=== PATIENT | male | born 1960 | race Caucasian/White ===

== ENCOUNTER 2018-08-21 09:46 | Observation (INO) | payer SELFPAY ==
[~2018-08-21] VITALS: Ht 172.7 cm; Wt 120.7 kg
[~2018-08-21 09:46] MED LIST: LORA-1455 PO
--- NOTE | 2018-08-21 09:49 | ER Report ---
History and Physical Time Seen By MD: 09:49 HPI/ROS CHIEF COMPLAINT: Left flank, left lower abdominal pain. HISTORY OF PRESENT ILLNESS: Patient is a 58-year-old male who was involved in [place]. States that yesterday evening. Tonight he developed worsening left back left flank and left groin pain. Patient does have a prior history of kidney stones but states the pain feels different it is much more severe. Patient is unable to find a position of comfort. He does however preferred to lay on his right side. Pain is associated with some nausea. He denies any fevers or chills. Denies any history of hypertension. Denies any other real significant past medical history. REVIEW OF SYSTEMS: Constitutional: No fever, no chills. Eyes: No discharge. ENT: No sore throat. Cardiovascular: No chest pain, no palpitations. Respiratory: No cough, no shortness of breath. Gastrointestinal: Severe left lower quadrant and left flank abdominal pain. Genitourinary: No hematuria. Left scrotal pain Musculoskeletal: Left sided back pain Skin: No rashes. Neurological: No headache. Allergies: Coded Allergies: No Known Drug Allergies (Unverified , 07/30/16) Home Meds Reported Medications Citrulline (L-CITRULLINE) 25 Gm Powder, 25 GM MC 08/21/18 Saw [place] (SAW PALMETTO) 500 Mg Capsule, 500 MG PO, CAPSULE 08/21/18 Discontinued Scripts Lorazepam (ATIVAN) 0.5 Mg Tablet, 0.5 MG PO Q4-6H PRN for ANXIETY, #10 TAB Prov:LINDA BAER UTILIZATION SUPERVISOR 07/30/16 Past Medical/Surgical History Patient denies any pertinent medical or surgical history. Hx Substance Use Disorder: No Constitutional Vital Sign - Last 24 Hours 08/21/18 08/21/18 08/21/18 08/21/18 09:57 09:58 10:01 10:16 Temp 98.2 Pulse 73 71 74 Resp 22 10 B/P (MAP) 162/81 162/81 (108) Pulse Ox 92 92 95 O2 Delivery Room Air 08/21/18 08/21/18 08/21/18 08/21/18 10:18 10:26 10:30 10:31 Pulse 71 Resp 21 B/P (MAP) 129/75 (93) 144/100 (115) Pulse Ox 91 O2 Flow Rate 2.0 08/21/18 08/21/18 10:46 11:02 Pulse ??? B/P (MAP) 151/79 (103) Physical Exam General/Constitutional: Patient is awake, alert, nontoxic and in no acute respiratory distress. Patient moving on the gurney in extreme discomfort. Head: Normocephalic and atraumatic. Eyes: Conjunctival clear, Pupils are equal and reactive to light. Extraocular muscles are intact and symmetrical. Sclera are clear and anicteric. Ears:External canals are clear. Tympanic membranes are clear with normal marlene dmarks and light reflex. Nares: No rhinorrhea or bleeding. Turbinates are pink and moist. Oropharyngeal: Mucous membranes are moist. Neck: Supple, no adenopathy. Cardiovascular: Heart is regular rate and rhythm without audible murmurs, rubs or gallops. Pulmonary: Lungs are clear to auscultation bilaterally. There are no wheezes, rales, or rhonchi. Chest rise is symmetrical Abdomen: Soft, nontender, no guarding or peritoneal signs. Extremities: No gross deformities, No peripheral cyanosis. Able to move all 4 extremities. Neuro: Alert and oriented X3, Skin: No rashes, skin is warm dry and well perfused. Medical Decision Making Data Points Result Diagram: 08/21/18 1003 08/21/18 1003 Laboratory Hematology Test 08/21/18 10:03 08/21/18 11:05 Red Blood Count 5.78 M/uL (4.00-5.60) Mean Corpuscular Volume 86.5 fL (80.0-96.0) Mean Corpuscular Hemoglobin 29.9 pg (26.0-33.0) Mean Corpuscular Hemoglobin Concent 34.6 g/dL (32.0-36.0) Red Cell Distribution Width 13.5 % (11.5-14.5) Mean Platelet Volume 7.5 fL (7.2-11.1) Neutrophils (%) (Auto) 90.3 % (39.4-72.5) Lymphocytes (%) (Auto) 3.2 % (17.6-49.6) Monocytes (%) (Auto) 5.9 % (4.1-12.4) Eosinophils (%) (Auto) 0.3 % (0.4-6.7) Basophils (%) (Auto) 0.3 % (0.3-1.4) Nucleated RBC Relative Count (auto) 0.0 /100WBC Neutrophils # (Auto) 21.7 K/uL (2.0-7.4) Lymphocytes # (Auto) 0.8 K/uL (1.3-3.6) Monocytes # (Auto) 1.4 K/uL (0.3-1.0) Eosinophils # (Auto) 0.1 K/uL (0.0-0.5) Basophils # (Auto) 0.1 K/uL (0.0-0.1) Nucleated RBC Absolute Count (auto) 0.01 K/uL Peripheral Blood Smear Yes Y/N Sodium Level 136 mmol/L (137-145) Potassium Level 4.2 mmol/L (3.5-5.0) Chloride Level 108 mmol/L (98-107) Carbon Dioxide Level 20 mmol/L (22-30) Blood Urea Nitrogen 17 mg/dl (9-21) Creatinine 1.00 mg/dl (0.66-1.25) Glomerular Filtration Rate Calc > 60.0 Random Glucose 193 mg/dl (75-110) Calcium Level 9.6 mg/dl (8.4-10.2) Total Bilirubin 1.6 mg/dl (0.2-1.3) Aspartate Amino Transf (AST/SGOT) 30 U/L (0-35) Alanine Aminotransferase (ALT/SGPT) 64 U/L (0-56) Alkaline Phosphatase 74 U/L (0-126) Total Protein 7.8 g/dl (6.3-8.2) Albumin 4.7 g/dl (3.5-5.0) Lipase 76 U/L (23-300) Urine Color Yellow Urine Clarity Clear Urine pH 5.0 pH (4.8-9.5) Urine Specific [place] 1.041 Urine Protein 30 mg/dL (NEGATIVE) Urine Glucose (UA) 50 mg/dL (NEGATIVE) Urine Ketones 20 mg/dL (NEGATIVE) Urine Blood Small (NEGATIVE) Urine Nitrite Positive (NEGATIVE) Urine Bilirubin Negative (NEGATIVE) Urine Urobilinogen Negative mg/dL (0.2-1.9) Urine Leukocyte Esterase Large (NEGATIVE) Urine RBC 4 /HPF (0-2/HPF) Urine WBC 49 /HPF (0-5/HPF) Urine Squamous Epithelial Cells Few /LPF (</=FEW) Urine Bacteria Moderate /HPF (NONE-FEW) Urine Mucus Few /HPF (NONE-FEW) Chemistry Test 08/21/18 10:03 08/21/18 11:05 White Blood Count 24.0 k/uL (4.5-11.0) Red Blood Count 5.78 M/uL (4.00-5.60) Hemoglobin 17.3 g/dL (14.0-18.0) Hematocrit 50.0 % (42.0-52.0) Mean Corpuscular Volume 86.5 fL (80.0-96.0) Mean Corpuscular Hemoglobin 29.9 pg (26.0-33.0) Mean Corpuscular Hemoglobin Concent 34.6 g/dL (32.0-36.0) Red Cell Distribution Width 13.5 % (11.5-14.5) Platelet Count 261 K/uL (150-450) Mean Platelet Volume 7.5 fL (7.2-11.1) Neutrophils (%) (Auto) 90.3 % (39.4-72.5) Lymphocytes (%) (Auto) 3.2 % (17.6-49.6) Monocytes (%) (Auto) 5.9 % (4.1-12.4) Eosinophils (%) (Auto) 0.3 % (0.4-6.7) Basophils (%) (Auto) 0.3 % (0.3-1.4) Nucleated RBC Relative Count (auto) 0.0 /100WBC Neutrophils # (Auto) 21.7 K/uL (2.0-7.4) Lymphocytes # (Auto) 0.8 K/uL (1.3-3.6) Monocytes # (Auto) 1.4 K/uL (0.3-1.0) Eosinophils # (Auto) 0.1 K/uL (0.0-0.5) Basophils # (Auto) 0.1 K/uL (0.0-0.1) Nucleated RBC Absolute Count (auto) 0.01 K/uL Peripheral Blood Smear Yes Y/N Glomerular Filtration Rate Calc > 60.0 Calcium Level 9.6 mg/dl (8.4-10.2) Total Bilirubin 1.6 mg/dl (0.2-1.3) Aspartate Amino Transf (AST/SGOT) 30 U/L (0-35) Alanine Aminotransferase (ALT/SGPT) 64 U/L (0-56) Alkaline Phosphatase 74 U/L (0-126) Total Protein 7.8 g/dl (6.3-8.2) Albumin 4.7 g/dl (3.5-5.0) Lipase 76 U/L (23-300) Urine Color Yellow Urine Clarity Clear Urine pH 5.0 pH (4.8-9.5) Urine Specific [place] 1.041 Urine Protein 30 mg/dL (NEGATIVE) Urine Glucose (UA) 50 mg/dL (NEGATIVE) Urine Ketones 20 mg/dL (NEGATIVE) Urine Blood Small (NEGATIVE) Urine Nitrite Positive (NEGATIVE) Urine Bilirubin Negative (NEGATIVE) Urine Urobilinogen Negative mg/dL (0.2-1.9) Urine Leukocyte Esterase Large (NEGATIVE) Urine RBC 4 /HPF (0-2/HPF) Urine WBC 49 /HPF (0-5/HPF) Urine Squamous Epithelial Cells Few /LPF (</=FEW) Urine Bacteria Moderate /HPF (NONE-FEW) Urine Mucus Few /HPF (NONE-FEW) Urinalysis Test 08/21/18 11:05 Urine Color Yellow Urine Clarity Clear Urine pH 5.0 pH (4.8-9.5) Urine Specific [place] 1.041 Urine Protein 30 mg/dL (NEGATIVE) Urine Glucose (UA) 50 mg/dL (NEGATIVE) Urine Ketones 20 mg/dL (NEGATIVE) Urine Blood Small (NEGATIVE) Urine Nitrite Positive (NEGATIVE) Urine Bilirubin Negative (NEGATIVE) Urine Urobilinogen Negative mg/dL (0.2-1.9) Urine Leukocyte Esterase Large (NEGATIVE) Urine RBC 4 /HPF (0-2/HPF) Urine WBC 49 /HPF (0-5/HPF) Urine Squamous Epithelial Cells Few /LPF (</=FEW) Urine Bacteria Moderate /HPF (NONE-FEW) Urine Mucus Few /HPF (NONE-FEW) ED Course/Re-evaluation ED Course 08/21/2018 10:55:41 am pain has improved since administration of 1 mg of Dilaudid, 15 of IV Toradol, 4 of Zofran. Blood cell count shows white count of 24,000 with 90% neutrophils. Waiting results of CT scan of the abdomen and pe lvis. 08/21/2018 11:32:48 am urinalysis is highly suggestive of infection based on elevated white count and nitrites. We'll give IV Rocephin. We'll also obtain a urine culture. Decision to Disposition Date: Aug 21, 2018 Decision to Disposition Time: 12:00 Depart Departure Latest Vital Signs Vital Signs Date Time Temp Pulse Resp B/P (MAP) Pulse Ox O2 Delivery O2 Flow Rate FiO2 08/21/18 11:02 151/79 (103) 08/21/18 10:46 ??? 08/21/18 10:31 21 91 08/21/18 10:26 2.0 08/21/18 09:57 98.2 Room Air Impression: Primary Impression: Pyelonephritis Condition: Improved Disposition: Admitted from ER (to DR Townsend) RAKAN DELACRUZ MD Aug 21, 2018 09:49
[2018-08-21] MEDS ORDERED: NS(*) 0.9% 500 ML BAG 500 ML IV ONE (10:05)
[2018-08-21] MEDS ORDERED: KETOROLAC 30 MG/ML VIAL IVP ONE (10:05)
[2018-08-21] MEDS ORDERED: HYDROMORPHONE HCL 1 MG/ML SYRINGE IVP ONE ×2 (10:05→11:35)
[2018-08-21] MEDS ORDERED: ONDANSETRON 4 MG/2 ML VIAL IVP ONE (10:05)
[2018-08-21 10:15] LABS: PLATELET COUNT, AUTOMATED 261 K/uL (150-450)
[2018-08-21] MEDS ORDERED: IOPAMIDOL 76% 50 ML INFUS BTL 100 ML ONE (10:37)
[2018-08-21] MEDS ORDERED: SAW500CA PO (11:25)
[2018-08-21] MEDS ORDERED: [UNRECOGNIZED DRUG - CODE] MC (11:25)
[2018-08-21] MEDS ORDERED: cefTRIAXone 1 GM VIAL IVP ONE (11:30)
--- NOTE | 2018-08-21 11:52 | RADIOLOGY IMAGING REPORT ---
FACILITY: [facility] PATIENT NAME: Tj Collado : 1960 MR: [id number] V: [id number] EXAM DATE: ORDERING PHYSICIAN: RAKAN DELACRUZ TECHNOLOGIST: Location: [facility] - [place] Patient: Tj Collado : 1960 Visit/Account:[id number] Date of Sevice: 08/21/2018 CT ABDOMEN PELVIS W & W/O CONTRAST HISTORY: Right flank pain, left abdomen pain TECHNIQUE: Axial images acquired through the abdomen/pelvis both with and without IV contrast.. Yobani nal and sagittal reformatting also performed.Dose Lowering Technique One of the following dose optimization techniques was utilized in the performance of this exam: Autom ated exposure control; adjustment of the mA and/or kV according to the patient's size; or use of an i terative reconstruction technique. Specific details can be referenced in the facility's radiology C T exam operational policy. CONTRAST: 75 mL Isovue-370 COMPARISON: None. FINDINGS: Visualized lung bases: There is a 2 mm noncalcified pulmonary nodule anterolateral inferior right mi ddle lobe best seen on image 34 of series 5 Hepatobiliary: There is a 1 cm cyst lateral segment left lobe of the liver. There is diffuse hepati c steatosis and mild hepatomegaly Spleen: Borderline splenomegaly with spleen measuring 13.8 cm in length Adrenals: There is a 2.8 cm indeterminate left adrenal mass. The right adrenal gland appears unrema rkable Pancreas: Negative. Kidneys ureters and bladder: There is a five mm nonobstructing calculus lower pole calyx of the right kidney . There is a 1 to 2 mm calcification upper pole of the left kidney may be intraparenchymal.. There is a 3 mm calcification interpolar region of the left kidney which may also be intraparenchym al. There is a 1.8 cm indeterminate isodense mass projecting from the lower pole of the left kidney that demonstrates mild contrast enhancement. There is a 1.5 cm cyst upper pole of the right kidney and a subcentimeter indeterminate round hypodensity upper pole of the left kidney and an additional subcent imeter hypodensity interpolar region of the left kidney both of these are too small to characterize b y CT. The bladder wall is mildly thickened The distal right ureter at the right UVJ appears somewhat thickened Genitalia: Prostate gland is moderately enlarged impinging upon the floor the bladder GI: There is diverticulosis of the left-sided the colon although no CT evidence of acute diverticuli tis . The appendix is visualized and does not appear inflamed Vessels/spaces/nodes: There is scattered mildly prominent retroperitoneal lymph nodes present a repr esentative aortocaval lymph node measures 1.3 x 1.1 x 1.8 cm a preaortic lymph node measures 1 x 1.1 x 1.4 cm right external iliac lymph node measures 1.2 x 1 x 1.4 cm left external iliac lymph node kala sures 1.5 x 1.1 x 1 cm Bones/soft tissues: There is a small umbilical hernia containing fat. There are small bilateral ing uinal hernias containing fat, left greater than right. There are spondylotic changes of the thoracolumbar spine Additional findings: None pertinent. IMPRESSION: There is a 2 mm noncalcified pulmonary nodule anterolateral inferior right middle lobe F[employer] SOCIETY FOLLOW-UP GUIDELINES FOR NEWLY DETECTED INCIDENTAL NODULES IN PERSONS 35 YEARS OF AGE OR OLDER. *These recommendations do NOT apply to lung cancer screening, patients with immunosuppression or sidney ents with a known primary malignancy. SOLITARY SOLID NODULE If nodule size is < 6 mm: * Low risk patient ? No routine follow-up. * High risk patient ? Optional CT at 12 months. If nodule size is 6-8 mm: * Low risk patient ? CT at 6-12 months, then consider CT at 18-24 months if no change. * High risk patient ? CT at 6-12 months, then CT at 18-24 months if no change. If nodule size is > 8 mm: * Low risk patient ? Consider CT at 3, 9 and 24 months (if no change), PET/CT, tissue sampling or a combination thereof. * High risk patient ? Consider CT at 3, 9 and 24 months (if no change), PET/CT, tissue sampling, or a combination thereof. LOW RISK PATIENT: Minimal or absent history of tobacco use and of other known risk factors.HIGH RISK PATIENT: Tobacco use, family history of lung cancer, upper pulmonary lobe location of nodule, presenc e of emphysema, pulmonary fibrosis, older age. Flory H, Ashia DP, Matt REBOLLAR, et al. Guidelines for Management of Incidental Pulmonary Nodules Dete cted on CT Images: From the Fleischner Society 2017. Radiology. uchnipn Diffuse hepatic steatosis and mild hepatomegaly Borderline splenomegaly There is a 2.8 cm indeterminate left adrenal mass. This could be further evaluated with MR or dedica hussain CT of the adrenal glands with and without contrast There is a 5 mm nonobstructing calculus lower pole calyx of the right kidney. There is thickening of the distal right ureter at the right UVJ which is not ideally evaluated due to lack of intraluminal contrast 2. Small calcified occasions within the left kidney may be intraparen chymal There is 1.8 cm indeterminate mass lower pole the left kidney which could be further evaluated with M R Additional hypodensities in the kidneys that are too small to characterize Bladder wall is mildly thickened Prostate gland is moderately enlarged impinging upon the floor the bladder Diverticulosis of the left side of the colon although no CT evidence of acute diverticulitis. There are mildly prominent retroperitoneal lymph nodes as detailed above. Although these could be re active although clinical follow-up recommended to exclude malignancy Small umbilical hernia containing fat
[2018-08-21 12:55] VITALS: BP 149/84
[2018-08-21] MEDS ORDERED: MORPHINE 4 MG/ML SDV IVP ONE (13:15)
[2018-08-21] MEDS ORDERED: HYDROmorphone HCL 2 MG/ML SDV IVP ONE (15:50)
[2018-08-21 16:01] VITALS: BP 161/86
[2018-08-21] MEDS ORDERED: ACETAMINOPHEN 325 MG TAB PO PRN (16:45)
[2018-08-21] MEDS ORDERED: FLUSH 10 ML SYR IVP PRN (16:45)
[2018-08-21] MEDS ORDERED: HYDROmorphone HCL 2 MG/ML SDV IVP PRN (16:45)
[2018-08-21] MEDS: NS(*) 0.9% 1000 ML BAG 1,000 ML IV PRN (17:04)
[2018-08-21] MEDS: oxyCODONE HCL 5 MG CAP PO PRN (17:04)
[2018-08-21] MEDS: KETOROLAC 30 MG/ML VIAL IVP SCH ×2 (18:10→23:28)
--- NOTE | 2018-08-21 21:05 | History & Physical ---
History of Present Illness Chief Complaint L flank pain History of Present Illness 58M presented with 3-4 days worsening L flank pain. PMHx significant for 4 episodes of renal stones. Reports pain did not allow him to sleep last night, unable to find position of comfort and pain has been getting worse. Reports it is similar to after he has passed a stone previously. WBC significantly elevated, UA concerning for infection. CT shows distal R ureteral thickening above UPJ, L non obstructing stone in renal pelvis, some prostatic hypertrophy and mild symmetric bladder wall thickening. No evidence of fat stranding. History Problems: (1) Renal stones Home Meds Reported Medications Citrulline (L-CITRULLINE) 25 Gm Powder, 25 GM MC QDAY 08/21/18 Saw [place] (SAW PALMETTO) 500 Mg Capsule, 500 MG PO QDAY, CAPSULE 08/21/18 Discontinued Scripts Lorazepam (ATIVAN) 0.5 Mg Tablet, 0.5 MG PO Q4-6H PRN for ANXIETY, #10 TAB Prov:LINDA BAER HUMAN RESOURCES BENEFITS ASSISTANT 07/30/16 Allergies: Coded Allergies: No Known Drug Allergies (Unverified , 07/30/16) Patient History: FH: HTN (hypertension) Hx Smoking: No Caffeine Intake: Coffee Hx Alcohol Use: Yes (occ) Hx Substance Use Disorder: Yes Social Drugs: Marijuana Review of Systems All Systems Reviewed/Normal: Yes, Except as Noted Constitutional: No Fever Gastrointestinal: No Nausea, No Vomiting Genitourinary: Other (L flank pain) Exam Vital Signs Vital Signs Date Time Temp Pulse Resp B/P (MAP) Pulse Ox O2 Delivery O2 Flow Rate FiO2 08/21/18 17:21 93 08/21/18 17:16 Nasal Cannula 08/21/18 16:01 98.3 68 18 161/86 (111) 2.0 General Appearance: Alert, Awake, Afebrile (appears uncomfortable, no position of comfort) Neuro: No Gross deficits ENT: Normal Cardiovascular: Normal Rhythm & Peripheral Pulses Respiratory: No Respiratory Distress GI: Abd Soft and Non-Tender Extremities: Soft and Non Tender, Warm, Pulses, Perfused Integumentary: Skin Intact without Lesion / Mass Medical Decision Making Data Points Result Diagram: 08/21/18 1003 08/21/18 1003 Assessment and Plan Problems: (1) Pyelonephritis Status: Acute Assessment & Plan: Elevated WBC count, UA appears to be infected, with L flank pain. Picture is also compatible with passage of renal stone possibly infected. Empiric ceftriaxone, pain control, hydration, monitor urine Cx. If doing well could discharge tomorrow. (2) Abnormal computed tomography of ureter Assessment & Plan: R ureteral thickening possibly reactive to one of his previous kidney stones. Recommend outpatient UA to evaluate for blood after out of acute phase vs CT with contrast during ureteral phase to evaluate for filling defect. There are also indeterminant masses of L adrenal (2.8cm) and L kidney (1.8cm) which should be further characterized and borderline retroperitoneal lymphadenopathy possibly reactive in nature. Venous Thromboembolism Antithrombotics Is Pt On Any Antithrombotics?: Yes Exam Sepsis Risk: No Definite Risk MOSES ANSLEY MACHUCA DO Aug 21, 2018 21:04
[2018-08-21 21:44] VITALS: BP 117/60
[2018-08-22] MEDS: oxyCODONE HCL 5 MG CAP PO PRN ×3 (01:02→22:03)
[2018-08-22] MEDS: NS(*) 0.9% 1000 ML BAG 1,000 ML IV PRN (03:08)
[2018-08-22 03:09] VITALS: BP 133/104
[2018-08-22] MEDS: KETOROLAC 30 MG/ML VIAL IVP SCH ×4 (05:16→23:30)
[2018-08-22 05:51] LABS: PLATELET COUNT, AUTOMATED 222 K/uL (150-450)
[2018-08-22 07:35] VITALS: BP 124/85
[2018-08-22 09:21] VITALS: Ht 172.7 cm; Wt 120.7 kg
--- NOTE | 2018-08-22 10:38 | Antimicrobial Stewardship ---
Antimicrobial Time Out Antimicrobial Stewardship MD Service: Hospitalist Indications: UTI Antimicrobial Used Rocephin 2 gm ivp qday Culture Results: No Eligible for PO Conversion Eligable for PO Conversion: No (WBC elevated) FRIDA CAVAZOS Aug 22, 2018 10:38
[2018-08-22 11:11] VITALS: BP 131/80
[2018-08-22] MEDS: cefTRIAXone 2 GM VIAL IVP SCH (11:30)
--- NOTE | 2018-08-22 13:00 | Hospitalist Progress Note ---
Subjective Progress Notes Subjective He complains of pain lower abdomen and left testicle. Less in left flank. Low grade temp (99.4F). Physical Exam Vital Signs Date Time Temp Pulse Resp B/P (MAP) Pulse Ox O2 Delivery O2 Flow Rate FiO2 08/22/18 11:11 99.4 59 18 131/80 (97) 94 Nasal Cannula 1.5 Intake and Output 08/22/18 07:00 Intake Total 3030 ml Balance 3030 ml Intake Oral 1250 ml IV Total 1780 ml # Voids 5 # [place] 1 General Appearance: Alert, Awake Cardiovascular: Regular Rate and Rhythm Respiratory: Clear to Auscultation GI: Other (Obese/fairly soft/BS present/no guarding or rebound) : Other (Left testicle is significantly swollen and tender to any palpation/difficult to discern structures) Extremities: Warm, Perfused Psych: Alert & Oriented X3 Result Diagram: 08/22/1853008/22/18530 Assessment and Plan Problems: (1) Testicular pain, left Status: Acute Assessment & Plan: He has significant swelling/pain in left testicle. I suspect he probably has infectious etiology, but cannot rule out vascular etiology. will get STAT ultrasound. Discuss with Urology. Continue IV antibiotics for possible epididymo-orchitis. Watch closely. (2) Pyelonephritis Status: Acute Assessment & Plan: Still a possibility, but suspect the left testicle is the source. Continue antibiotics. Will discuss with Urology. (3) Abnormal computed tomography of ureter Assessment & Plan: Right ureteral thickening possibly reactive to one of his previous kidney stones. Recommend outpatient UA to evaluate for blood after out of acute phase vs. CT with contrast during ureteral phase to evaluate for filling defect. There are also indeterminant masses of left adrenal (2.8cm) and left kidney (1.8cm) which should be further characterized and borderline retroperitoneal lymphadenopathy possibly reactive in nature. Exam Sepsis Risk: No Definite Risk TATA FREDERICK MD Aug 22, 2018 13:00
--- NOTE | 2018-08-22 13:34 | RADIOLOGY IMAGING REPORT ---
FACILITY: [facility] - [place] PATIENT NAME: Tj Collado : 1960 MR: [id number] V: [id number] EXAM DATE: ORDERING PHYSICIAN: TATA FREDERICK TECHNOLOGIST: Location: Patient: Tj Collado : 1960 Visit/Account:[id number] Date of Sevice: 08/22/2018 SCROTAL ULTRASOUND INDICATION: Left testicular swelling. COMPARISON: None available. FINDINGS: Right testicle measures 3.9 x 2.1 x 2.9 cm in cc, AP, and transverse dimensions respectively. There is normal arterial and venous blood flow. No evidence of hydrocele.. No varicocele identified. The right epididymal head measures 1.3 cm. Normal blood flow. No focal normality. Left testicle measures 4.7 x 2.9 x 3.7 cm in cc, AP, and transverse dimensions respectively. There is a area with in the left testes which is heterogeneous and somewhat ill-defined measuring 1.7 x 2.4 c m. No other focal abnormality. Significant increased blood flow to the left testes. Small left hydrocele. No varicocele identified. The left epididymal head measures 2.4 cm. Enlarged and heterogeneous with significant increased blood flow. No focal abnormality. IMPRESSION: 1. Left epididymal orchitis. The left testes also shows a ill-defined heterogeneous area measuring 2. 4 cm. This could be secondary to the infection. However suggest follow-up exam after resolution of in fection to assess for underlying lesion. 2. Small left hydrocele. I called report to TATA FREDERICK at 08/22/2018 1:30 PM. Report Dictated By: Tonny Ibarra at 08/22/2018 1:22 PM Report E-Signed By: Tonny Ibarra at 08/22/2018 1:31 PM WSN:[id number]
[2018-08-22] MEDS: DOXYCYCLINE HYCL 100 MG VIAL 100 MG in NS(*) 0.9% 250 ML BAG 250 ML IV SCH (14:00)
[2018-08-22] MEDS: ONDANSETRON 4 MG/2 ML VIAL IVP PRN (18:53)
[2018-08-22 19:28] VITALS: BP 136/77
[2018-08-23] MEDS: DOXYCYCLINE HYCL 100 MG VIAL 100 MG in NS(*) 0.9% 250 ML BAG 250 ML IV SCH (01:18)
[2018-08-23] MEDS: NS(*) 0.9% 1000 ML BAG 1,000 ML IV PRN (03:11)
[2018-08-23] MEDS: KETOROLAC 30 MG/ML VIAL IVP SCH (05:50)
[2018-08-23 05:56] VITALS: BP 163/83
[2018-08-23 06:33] LABS: PLATELET COUNT, AUTOMATED 240 K/uL (150-450)
--- NOTE | 2018-08-23 07:35 | EKG ---
FACILITY: [facility] [place] PATIENT NAME: DARLINE JUSTIN : [id number] MR: [id number] V: [id number] EXAM DATE: ORDERING PHYSICIAN: TATA FREDERICK TECHNOLOGIST: CHRISTY Test Reason : IRREGULAR BEAT Blood Pressure : / mmHG Vent. Rate : 139 BPM Atrial Rate : 144 BPM P-R Int : 000 ms QRS Dur : 080 ms QT Int : 278 ms P-R-T Axes : 000 034 030 degrees QTc Int : 423 ms Atrial fibrillation with rapid ventricular response Abnormal ECG When compared with ECG of 30-JUL-2016 12:00, Atrial fibrillation has replaced Sinus rhythm Vent. rate has increased BY 77 BPM Confirmed by FRANK FRANKLIN ([id number]) on 08/23/2018 8:58:44 AM Referred By: OTONIEL Confirmed By:FRANK FRANKLIN
[2018-08-23] MEDS ORDERED: METOPROLOL TART 5 MG/5 ML VIAL IVP PRN (09:00)
[2018-08-23] MEDS ORDERED: ACETAMINOPHEN 500 MG TAB PO PRN (09:10)
[2018-08-23] MEDS: ONDANSETRON 4 MG/2 ML VIAL IVP PRN ×2 (09:58→17:03)
[2018-08-23] MEDS: APAP/HYDROCODONE 325/5 TAB PO PRN ×3 (09:58→18:23)
[2018-08-23] MEDS: traMADol 50 MG TAB PO PRN ×2 (12:15→20:22)
[2018-08-23] MEDS: cefTRIAXone 2 GM VIAL IVP SCH (12:32)
--- NOTE | 2018-08-23 14:55 | Hospitalist Progress Note ---
Subjective Progress Notes Subjective 58M presented with L flank and groin pain. Pain continues to be difficult, afebrile. Patient Complains of: Gastrointestinal: No Nausea, No Vomiting Musculoskeletal: Pain Physical Exam Vital Signs Date Time Temp Pulse Resp B/P (MAP) Pulse Ox O2 Delivery O2 Flow Rate FiO2 08/23/18 11:50 85 08/23/18 10:42 72 08/23/18 10:13 Nasal Cannula 1.0 08/23/18 05:56 99.6 18 163/83 (109) Intake and Output 08/23/18 07:00 Intake Total 2917 ml Output Total 100 ml Balance 2817 ml Intake Oral 240 ml IV Total 2677 ml Output Urine Total 100 ml # Voids 4 General Appearance: Alert, Awake, No Acute Distress, Afebrile Neuro: No Gross deficits ENT: Normal Cardiovascular: Other (irregularly irregular) Respiratory: No Respiratory Distress GI: Soft and Non-Tender Extremities: Soft and Non Tender, Warm, Pulses, Perfused; No Edema Integumentary: Skin Intact without Lesion / Mass Result Diagram: 08/23/1848 08/23/1848 Assessment and Plan Problems: (1) Epididymo-orchitis without abscess Assessment & Plan: He has significant swelling/pain in left testicle. Discussed with urology, no indication for surgical intervention, will need outpt follow up. Continue IV antibiotics for epididymo-orchitis. Culture pending. (2) Abnormal computed tomography of ureter Assessment & Plan: Right ureteral thickening possibly reactive to one of his previous kidney stones. Recommend outpatient UA to evaluate for blood after out of acute phase vs. CT with contrast during ureteral phase to evaluate for filling defect. There are also indeterminant masses of left adrenal (2.8cm) and left kidney (1.8cm) which should be further characterized and borderline retroperitoneal lymphadenopathy possibly reactive in nature. Exam Sepsis Risk: No Definite Risk MOSES ANSLEY MACHUCA DO Aug 23, 2018 14:55
[2018-08-23 16:02] VITALS: BP 123/82
[2018-08-23] MEDS ORDERED: NAPROXEN 500 MG TAB PO SCH (17:00)
[2018-08-23] MEDS: NAPROXEN 500 MG TAB PO SCH (17:02)
[2018-08-23] MEDS ORDERED: PROMETHAZINE HCL 25 MG TAB PO PRN (17:35)
[2018-08-23] MEDS ORDERED: CALCIUM CARBONATE 500 MG CHEW PO PRN (17:55)
[2018-08-23 18:49] VITALS: BP 129/80
[2018-08-23] MEDS: RANITIDINE HCL 150 MG TAB PO SCH (20:15)
[2018-08-23 23:45] VITALS: BP 132/87
[2018-08-24] MEDS: APAP/HYDROCODONE 325/5 TAB PO PRN ×2 (01:04→08:32)
[2018-08-24 04:16] VITALS: BP 142/109
[2018-08-24] MEDS: traMADol 50 MG TAB PO PRN ×2 (05:39→13:26)
[2018-08-24 06:34] LABS: PLATELET COUNT, AUTOMATED 233 K/uL (150-450)
[2018-08-24 08:15] VITALS: BP 148/85
[2018-08-24] MEDS: RANITIDINE HCL 150 MG TAB PO SCH (08:32)
[2018-08-24] MEDS: NAPROXEN 500 MG TAB PO SCH (08:33)
[2018-08-24] MEDS ORDERED: INFLUENZA VIRUS VAC 0.5ML SYR IM ONLY ONE (09:00)
[2018-08-24] MEDS ORDERED: NAPR500T31 PO (09:39)
[2018-08-24] MEDS ORDERED: LOR5/325 PO ×2 (09:39→10:00)
[2018-08-24] MEDS ORDERED: LEVO750T27 PO (09:39)
[2018-08-24] MEDS ORDERED: ACET-2043 PO (09:39)
[2018-08-24] MEDS ORDERED: LEVOFLOXACIN 750 MG TAB PO SCH (10:00)
--- NOTE | 2018-08-24 12:15 | EKG ---
FACILITY: [facility] PATIENT NAME: DARLINE JUSTIN : [id number] MR: [id number] V: [id number] EXAM DATE: ORDERING PHYSICIAN: MARCELINO HUNT TECHNOLOGIST: CHRISTY Test Reason : A-FIB Blood Pressure : / mmHG Vent. Rate : 076 BPM Atrial Rate : 076 BPM P-R Int : 144 ms QRS Dur : 096 ms QT Int : 402 ms P-R-T Axes : 071 018 032 degrees QTc Int : 452 ms Sinus rhythm with occasional premature ventricular complexes Otherwise normal ECG Compared to previous, atrial fibrillation with RVR has been replaced by NSR Confirmed by MARCELINO HUNT ([id number]) on 08/24/2018 8:39:47 PM Referred By: MARILEE Confirmed By:MARCELINO HUNT
[2018-08-24 13:21] VITALS: BP 148/85
--- NOTE | 2018-08-24 15:09 | Hospitalist Depart ---
Discharge Summary Reason for Hosp/Final Diag: (1) Epididymo-orchitis without abscess Hospital Course & Plan: He presented with 3-4 days of worsening left flank pain and scrotal pain. He had significant swelling/pain in left testicle. Discussed with urology and there was no indication for surgical intervention based on the ultrasound. He was started on Ceftriaxone and switched to Levofloxacin yesterday. His WBC is now normal. His pain and swelling are improving. It will likely take a month for the pain and swelling to resolve. He will be sent out for a total of a 10 day course of Levofloxacin. (2) Atrial fibrillation Status: Resolved Hospital Course & Plan: He had an asymptomatic period time in atrial fibrillation in the morning of 2 that was thought to be related to his acute illness. It lasted for a couple of hours and resolved after metoprolol IV was given. It has not recurred. Echo showed an EF of 60-65% and RVSP c/w severe pulmonary hypertension. TSH is pending. He has been sent home on a 48 hour Holter monitor. He is to follow up at the [facility]. (3) Abnormal CT scan, kidney Status: Acute Hospital Course & Plan: There are also indeterminant masses of left adrenal (2.8cm) and left kidney (1.8cm). The recommendation is a dedicated MRI and evaluation for subclinical hormonal hyperfunction. The patient wants to follow up with the [facility] to further that evaluation. (4) Abnormal computed tomography of ureter Hospital Course & Plan: Right ureteral thickening possibly reactive to one of his previous kidney stones. Recommend outpatient UA to evaluate for blood after out of acute phase vs. CT with contrast during ureteral phase to evaluate for filling defect. Departure Weight (Pounds): 266 Result Diagram: 08/24/1852208/24/18522 Item Value Date Time White Blood Count 24.0 k/uL H 08/21/18 1003 White Blood Count 18.5 k/uL H 08/22/1831 White Blood Count 11.9 k/uL H 08/23/18 0548 White Blood Count 8.1 k/uL 08/24/1823 Neutrophils (%) (Auto) 90.3 % H 08/21/18 1003 Neutrophils (%) (Auto) 86.2 % H 2/2/19 0531 Neutrophils (%) (Auto) 85.2 % H 08/23/18 0548 Neutrophils (%) (Auto) 71.1 % 08/24/18 0523 Hemoglobin 17.3 g/dL 08/21/18 1003 Hemoglobin 15.4 g/dL 08/22/18 0531 Hemoglobin 15.9 g/dL 08/23/18 0548 Hemoglobin 14.3 g/dL 08/24/18 0523 Sodium Level 136 mmol/L L 08/21/18 1003 Sodium Level 135 mmol/L L 08/22/18 0531 Sodium Level 137 mmol/L 08/23/18 0548 Sodium Level 137 mmol/L 08/24/18 0523 Creatinine 0.90 mg/dl 08/24/18 0523 Creatinine 1.10 mg/dl 08/23/18 0548 Creatinine 0.90 mg/dl 08/22/18 0531 Creatinine 1.00 mg/dl 08/21/18 1003 Blood Urea Nitrogen 17 mg/dl 08/21/18 1003 Blood Urea Nitrogen 22 mg/dl H 08/22/18 0531 Blood Urea Nitrogen 26 mg/dl H 08/23/18 0548 Blood Urea Nitrogen 25 mg/dl H 08/24/18 0523 Total Bilirubin 1.6 mg/dl H 08/21/18 1003 Total Bilirubin 1.5 mg/dl H 08/22/18 0531 Total Bilirubin 1.4 mg/dl H 08/23/18 0548 Aspartate Amino Transf (AST/SGOT) 40 U/L H 08/23/18 0548 Aspartate Amino Transf (AST/SGOT) 34 U/L 08/22/18 0531 Aspartate Amino Transf (AST/SGOT) 30 U/L 08/21/18 1003 Alanine Aminotransferase (ALT/SGPT) 64 U/L H 08/21/18 1003 Alanine Aminotransferase (ALT/SGPT) 66 U/L H 08/22/18 0531 Alanine Aminotransferase (ALT/SGPT) 94 U/L H 08/23/18 0548 Alkaline Phosphatase 88 U/L 08/23/18 0548 Alkaline Phosphatase 61 U/L 08/22/18 0531 Alkaline Phosphatase 74 U/L 08/21/18 1003 Urine Glucose (UA) 50 mg/dL H 08/21/18 1105 Urine Ketones 20 mg/dL H 2/1/19 1105 Urine Blood Small 08/21/181104 Urine Nitrite Positive H 08/21/181104 Urine Bilirubin Negative 08/21/181104 Urine Urobilinogen Negative mg/dL 08/21/181104 Urine Leukocyte Esterase Large H 08/21/181104 Urine RBC 4 /HPF 08/21/181104 Urine WBC 49 /HPF 08/21/181104 Urine Squamous Epithelial Cells Few /LPF 08/21/181104 Urine Bacteria Moderate /HPF H 08/21/181104 SPEC #: [id number] PATRICIA: 08/21/18 STATUS: COMP REQ #: [id number] RECD: 08/21/[address] [facility] [address]: RAKAN DELACRUZ MD SOURCE: [facility] ENTR: 08/21/[address] [facility]: SPDESC: ORDERED: CULT URINE Procedure Result Verified URINE CULTURE Final 08/23/1859 Organism 1 ESCHERICHIA COLI >100,000 COL/ML ESC COLI M.I.C. RX --------- --- AMPICILLIN 4 S AMPICILLIN/SULBACTAM <=2 S CEFAZOLIN <=4 S CEFTAZIDIME <=1 S CEFTRIAXONE <=1 S CEFEPIME <=1 S CEFOXITIN <=4 S ERTAPENEM <=0.5 S CIPROFLOXACIN <=0.25 S GENTAMICIN <=1 S IMIPENEM <=0.25 S LEVOFLOXACIN <=0.12 S NITROFURANTOIN <=16 S PIPERACILLIN/TAZOBACTAM <=4 S TOBRAMYCIN <=1 S TRIMETHOPRIM/SULFAMETHOXAZOLE <=20 S Imaging 08/24/18 Echo - (see the official report for details) Echo showed an EF of 60-65% and RVSP c/w severe pulmonary hypertension 08/22/18 Testicular US - 1. Left epididymal orchitis. The left testes also shows a ill-defined heterogeneous area measuring 2.4 cm. This could be secondary to the infection. However suggest follow-up exam after resolution of infection to assess for underlying lesion. 2. Small left hydrocele. 08/21/18 Abd/Pelvis CT - There is a 2 mm noncalcified pulmonary nodule anterolateral inferior right middle lobe [employer] FOLLOW-UP GUIDELINES FOR NEWLY DETECTED INCIDENTAL NODULES IN PERSONS 35 YEARS OF AGE OR OLDER. *These recommendations do NOT apply to lung cancer screening, patients with immunosuppression or patients with a known primary malignancy. SOLITARY SOLID NODULE If nodule size is < 6 mm: * Low risk patient ? No routine follow-up. * High risk patient ? Optional CT at 12 months. If nodule size is 6-8 mm: * Low risk patient ? CT at 6-12 months, then consider CT at 18-24 months if no change. * High risk patient ? CT at 6-12 months, then CT at 18-24 months if no change. If nodule size is > 8 mm: * Low risk patient ? Consider CT at 3, 9 and 24 months (if no change), PET/CT, tissue sampling or a combination thereof. * High risk patient ? Consider CT at 3, 9 and 24 months (if no change), PET/CT, tissue sampling, or a combination thereof. LOW RISK PATIENT: Minimal or absent history of tobacco use and of other known risk factors.HIGH RISK PATIENT: Tobacco use, family history of lung cancer, upper pulmonary lobe location of nodule, presence of emphysema, pulmonary fibrosis, older age. Flory H, Ashia DP, Matt JM, et al. Guidelines for Management of Incidental Pulmonary Nodules Detected on CT Images: From the Fleischner Society 2017. Radiology. uchnipn Diffuse hepatic steatosis and mild hepatomegaly Borderline splenomegaly There is a 2.8 cm indeterminate left adrenal mass. This could be further evaluated with MR or dedicated CT of the adrenal glands with and without contrast There is a 5 mm nonobstructing calculus lower pole calyx of the right kidney. There is thickening of the distal right ureter at the right UVJ which is not ideally evaluated due to lack of intraluminal contrast 2. Small calcified occasions within the left kidney may be intraparenchymal There is 1.8 cm indeterminate mass lower pole the left kidney which could be further evaluated with MR Additional hypodensities in the kidneys that are too small to characterize Bladder wall is mildly thickened Prostate gland is moderately enlarged impinging upon the floor the bladder Diverticulosis of the left side of the colon although no CT evidence of acute diverticulitis. There are mildly prominent retroperitoneal lymph nodes as detailed above. Although these could be reactive although clinical follow-up recommended to exclude malignancy Small umbilical hernia containing fat EKG Vent. Rate : 076 BPM Atrial Rate : 076 BPM P-R Int : 144 ms QRS Dur : 096 ms QT Int : 402 ms P-R-T Axes : 071 018 032 degrees QTc Int : 452 ms Sinus rhythm with occasional premature ventricular complexes Otherwise normal ECG Vent. Rate : 139 BPM Atrial Rate : 144 BPM P-R Int : 000 ms QRS Dur : 080 ms QT Int : 278 ms P-R-T Axes : 000 034 030 degrees QTc Int : 423 ms Atrial fibrillation with rapid ventricular response Abnormal ECG When compared with ECG of 30-JUL-2016 12:00, Atrial fibrillation has replaced Sinus rhythm Vent. rate has increased BY 77 BPM Confirmed by FRANK FRANKLIN ([id number]) on 08/23/2018 8:58:44 AM Condition: Improved Discharge: Home Discharge Instructions Home Meds Active Scripts Hydrocodone Bit/Acetaminophen (HYDROCODON-ACETAMINOPHEN 5-325) 1 Each Tablet, 1 EACH PO Q8H PRN for pain, #14 TAB Prov:MARCELINO HUNT MD 08/24/18 Levofloxacin 750 Mg Tab (LEVOFLOXACIN 750 MG TAB) 750 Mg Tablet, 750 MG PO QDAY@10, #10 Prov:MARCELINO HUNT MD 08/24/18 Naproxen (NAPROXEN) 500 Mg Tablet, 500 MG PO Q12H PRN for pain, #7 Prov:MARCELINO HUNT MD 08/24/18 Acetaminophen (ACETAMINOPHEN) 500 Mg Tablet, 1000 MG PO Q8H PRN for PAIN for 7 Days, Prov:MARCELINO HUNT MD 08/24/18 Reported Medications Citrulline (L-CITRULLINE) 25 Gm Powder, 25 GM MC QDAY 08/21/18 Saw [place] (SAW [place]) 500 Mg Capsule, 500 MG PO QDAY, CAPSULE 08/21/18 Discontinued Scripts Lorazepam (ATIVAN) 0.5 Mg Tablet, 0.5 MG PO Q4-6H PRN for ANXIETY, #10 TAB Prov:LINDA BAER KISS MACHINE OPERATOR 07/30/16 Diet: Regular Activity: As Tolerated Special Instructions: Go to the ER for fevers, worsening pain scrotal pain, bloody discharge from penis, increased scrotal swelling, chest pain, shortness of breath, and fast heart rate. Look on the patient portal to find the results of the echocardiogram, Holter Monitor and the TSH. For questions, go to the [facility]. A dedicated MRI of the adrenal gland and kidney are recommended in the next couple of months to follow up the masses seen on CT. It is also recommended to get hormonal screening of the adrenal gland to make sure the mass isn't active. Also, it is recommended to get a followup urine test to look for blood in about a month or so. Copies to: ; [facility] Venous Thromboembolism Antithrombotics Is Pt On Any Antithrombotics?: Yes MARCELINO HUNT MD Aug 24, 2018 15:08
[2018-08-25] MEDS ORDERED: ONDA4TAB9 PO (23:33)
[2018-08-25] MEDS ORDERED: SUCR1TAB85 PO (23:33)
[2018-08-25] MEDS ORDERED: TRAM-420 PO (23:33)
[2018-08-25] MEDS ORDERED: OMEP40CA48 PO (23:33)
--- NOTE | 2018-08-27 01:36 | RT HOLTER TEST ---
[place] [facility] [place] DARLINE JUSTIN : [id number] MR: [id number] V: [id number] EXAM DATE: ORDERING PHYSICIAN: MARCELINO HUNT TECHNOLOGIST: CHANDLER Pgeuero date: 2018-08-24 15:10:00 Duration: 44:06:00 Test Indications: AFIB Medications: [id number] QRS complexes 805 Ventricular ectopics which represent <1 % of total QRS comp. 182 Supraventricular ectopics which represent <1 % of total QRS comp. * Paced QRS complexes which represent % of total QRS comp. VENTRICULAR ECTOPY 785 Isolated 13 Bigeminal Cycles 2 Couplets 3 Runs 16 Beats in Runs 10 Beats LONGEST at 165 BPM at 18:00:56 2018-08-24 10 Beats FASTEST at 165 BPM at 18:00:56 2018-08-24 SUPRAVENTRICULAR ECTOPY 135 Isolated 14 Couplets 5 Runs 19 Beats in Runs 5 Beats LONGEST at 89 BPM at 18:02:26 2018-08-24 3 Beats FASTEST at 94 BPM at 21:56:42 2018-08-24 HEART RATES 42 MIN at 07:52:06 2018-08-26 60 AVG 170 MAX at 18:00:59 2018-08-24 LONGEST RR 1.648 secs at 05:03:30 2018-08-26 Channel 2 -12.800 mm MIN at 15:10:00 2018-08-24 -12.800 mm MAX at 15:10:00 2018-08-24 Channel 3 -12.800 mm MIN at 15:10:00 2018-08-24 -12.800 mm MAX at 15:10:00 2018-08-24 The patient had no reported symptoms during the study. He was predominantly in a sinus rhythm. He h ad an episode of a 9 beat run of ventricular ectopy at 165 bpm (nonsustained ventricular tachycardia). He had a 6 beat runs of supraventricular ectopy at 164 bpm. Confirmed by MARCELINO HUNT ([id number]) on 08/27/2018 1:35:28 AM Referred By: Overread By: MARCELINO UHNT
--- NOTE | 2018-08-27 06:51 | Miscellaneous Provider Note ---
Miscellaneous Provider Note Note He had a Holter monitor done as documented below. There was only a very short run of SVE. Otherwise, he was predominantly in a NSR. However, he did have non-sustained ventricular tachycardia of 9 beats that was asymptomatic. He has already had an echo that showed an EF of 60-65% with severe pulmonary hypertension and enlarged RV. His electrolytes are wnl. At this time there would be no further work up for NSVT. He will need to follow up with the [facility] clinic and get work up for the adrenal mass and ureteral thickening as stated in the discharge summary "Special Instructions". Likely, he would benefit from follow up with Cardiology in regards to the transient atrial fibrillation, also. Test Indications: AFIB Medications: [id number] QRS complexes 805 Ventricular ectopics which represent <1 % of total QRS comp. 182 Supraventricular ectopics which represent <1 % of total QRS comp. * Paced QRS complexes which represent % of total QRS comp. VENTRICULAR ECTOPY 785 Isolated 13 Bigeminal Cycles 2 Couplets 3 Runs 16 Beats in Runs 10 Beats LONGEST at 165 BPM at 18:00:56 2018-08-24 10 Beats FASTEST at 165 BPM at 18:00:56 2018-08-24 SUPRAVENTRICULAR ECTOPY 135 Isolated 14 Couplets 5 Runs 19 Beats in Runs 5 Beats LONGEST at 89 BPM at 18:02:26 2018-08-24 3 Beats FASTEST at 94 BPM at 21:56:42 2018-08-24 HEART RATES 42 MIN at 07:52:06 2018-08-26 60 AVG 170 MAX at 18:00:59 2018-08-24 LONGEST RR 1.648 secs at 05:03:30 2018-08-26 Channel 2 -12.800 mm MIN at 15:10:00 2018-08-24 -12.800 mm MAX at 15:10:00 2018-08-24 Channel 3 -12.800 mm MIN at 15:10:00 2018-08-24 -12.800 mm MAX at 15:10:00 2018-08-24 The patient had no reported symptoms during the study. He was predominantly in a sinus rhythm. He had an episode of a 9 beat run of ventricular ectopy at 165 bpm (nonsustained ventricular tachycardia). He had a 6 beat runs of supraventricular ectopy at 164 bpm. Confirmed by MARCELINO HUNT ([id number]) on 08/27/2018 1:35:28 AM Referred By: Overread By: MARCELINO HUNT Copies to: ; [facility] MARCELINO HUNT MD Aug 27, 2018 06:51
== END 2018-08-24 14:44 | disposition home or self-care (01) ==
LOC: ER 10:17 → INTOOBSV 12:28 → MED 12:28
PROVIDERS: ADMIT Internal Medicine; ATTEND Internal Medicine
DX: N20.0 Calculus of kidney (principal); Z87.442 Personal history of urinary calculi; R93.41 Abnormal radiologic findings on diagnostic imaging of renal pelvis, ureter, or bladder; N50.812 Left testicular pain; N45.3 Epididymo-orchitis; I48.91 Unspecified atrial fibrillation
CPT/HCPCS: 36415; 74178; 76870; 81001; 83690; 84443; 85025; 87088; 87186; 93005; 93225; 93306; 96361; 96374; 96375; 96376; 99285; G0378; J0696; J1170; J1885; J2270; J2405; J3490; J7030; J7040; J7050; Q9967; 82040; 82247; 82310; 82374; 82435; 82565; 82947; 84075; 84132; 84155; 84295; 84450; 84460; 84520; 93226

== ENCOUNTER 2018-08-25 18:12 | Emergency (ER) | payer SELFPAY ==
[2018-08-22 09:21] VITALS: Wt 120.7 kg
[~2018-08-25 18:12] MED LIST changes: +ACET-2043 PO; +LEVO750T27 PO; +LOR5/325 PO; +NAPR500T31 PO; +SAW500CA PO; +[UNRECOGNIZED DRUG - CODE] MC
--- NOTE | 2018-08-25 18:24 | ER Report ---
History and Physical Time Seen By MD: 18:24 Hx. of Stated Complaint: pt started hydrocodone/acetaminophen 5 325 last night and has had epigastric pain and nausea and sob since, dc'd yesterday [facility] COMPLAINT: Shortness of breath, abdominal pain with bloating HISTORY OF PRESENT ILLNESS: This is a 58-year-old male. He was just released from the hospital yesterday after being in the hospital for flank pain and infection such as orchitis. He is on Levaquin and they sent him home with hydrocodone for pain. He took a hydrocodone tablet last night and started to have severe stomach pain with some bloating. He also had a rash and felt short of breath. No feeling of his mouth or throat swelling. He also felt an abnormal feeling in his chest and he did have a run of atrial fibrillation while he was in the hospital, one short run only and had a echocardiogram done and is on a Holter monitor. His echocardiogram showed a normal ejection fraction but did show pulmonary hypertension. Further workup has yet to be done on this. The cousin of the abnormal feeling in his chest and the shortness of breath or was some concern about further atrial fibrillation although his electrical tracings on the monitor have been normal. He could be having paroxysms of atrial fibrillation. He was transferred here by ambulance. There is also the concern of the abdominal pain in the epigastric area with bloating but this could be a side effect of the hydrocodone as well. He denies any fevers or chills. He worries that he may have been released from the hospital too soon. Urine is still a dark color. He had 3 small bowel movements today but doesn't feel like the abdomen is back Or that this is a problem with obstruction or constipation. Associated nausea but no vomiting. REVIEW OF SYSTEMS: Constitutional: No fever or chills. Eyes: No vision changes. ENT: No sore throat. No congestion. Cardiovascular: No chest pain. Respiratory: As above. Gastrointestinal: As above. Genitourinary: As above. Musculoskeletal: No back pain. No extremity pain. Skin: Rash as noted. Neurological: No numbness. No weakness. Allergies: Coded Allergies: No Known Drug Allergies (Unverified , 07/30/16) Home Meds Active Scripts Ondansetron 4 Mg Odt (ONDANSETRON 4 MG ODT) 4 Mg Tab.rapdis, 4 MG PO ONCE PRN for NAUSEA/VOMITING, #20 TAB 0 Refills Prov:HARINDER MEHTA MD 08/25/18 Tramadol Hcl (TRAMADOL HCL) 50 Mg Tablet, 50 MG PO Q6H PRN for PAIN, #12 TAB 0 Refills Prov:HARINDER MEHTA MD 08/25/18 Sucralfate (CARAFATE) 1 Gm Tablet, 1 GM PO QID, #120 TAB 0 Refills Prov:HARINDER MEHTA MD 08/25/18 Omeprazole (OMEPRAZOLE) 40 Mg Capsule.dr, 40 MG PO BID, #60 CAP 0 Refills Prov:HARINDER MEHTA MD 08/25/18 Hydrocodone Bit/Acetaminophen (HYDROCODON-ACETAMINOPHEN 5-325) 1 Each Tablet, 1 EACH PO Q8H PRN for pain, #14 TAB Prov:MARCELINO HUNT MD 08/24/18 Levofloxacin 750 Mg Tab (LEVOFLOXACIN 750 MG TAB) 750 Mg Tablet, 750 MG PO QDAY@10, #10 Prov:MARCELINO HUNT MD 08/24/18 Naproxen (NAPROXEN) 500 Mg Tablet, 500 MG PO Q12H PRN for pain, #7 Prov:MARCELINO HUNT MD 08/24/18 Acetaminophen (ACETAMINOPHEN) 500 Mg Tablet, 1000 MG PO Q8H PRN for PAIN for 7 Days, Prov:MARCELINO HUNT MD 08/24/18 Reported Medications Citrulline (L-CITRULLINE) 25 Gm Powder, 25 GM MC QDAY 08/21/18 [place] (SAW [place]) 500 Mg Capsule, 500 MG PO QDAY, CAPSULE 08/21/18 Discontinued Scripts Lorazepam (ATIVAN) 0.5 Mg Tablet, 0.5 MG PO Q4-6H PRN for ANXIETY, #10 TAB Prov:LINDA BAER OUTPATIENT PSYCHIATRIST 07/30/16 Reviewed Nurses Notes: Yes Hx Smoking: No Hx Substance Use Disorder: No (marijuana qd ) Hx Alcohol Use: Yes (occ) Constitutional Vital Sign - Last 24 Hours 08/25/18 08/25/18 08/25/18 08/25/18 18:13 19:30 20:00 20:30 Temp 99.5 Pulse 61 61 56 55 Resp 20 B/P (MAP) 147/102 145/69 (94) Pulse Ox 93 88 93 93 O2 Delivery Room Air 08/25/18 08/25/18 08/25/18 08/25/18 21:00 21:30 22:00 22:30 Pulse 54 56 55 55 Pulse Ox 95 96 96 95 08/25/18 08/25/18 08/25/18 22:49 23:00 23:30 Pulse 64 61 B/P (MAP) 152/75 (100) Pulse Ox 93 89 Physical Exam General Appearance: The patient is alert. No acute distress. Eyes: Pupils are equal, round. No pallor, injection or icterus. ENT: Mucous membranes are moist. Normal oral mucosa. Posterior oropharynx is normal. Neck: Supple and non tender. Respiratory: Lungs are clear to auscultation. Cardiovascular: Regular rate and rhythm. No murmurs, gallops or rubs. Normal capillary refill. No edema. Gastrointestinal: Abdomen is soft, it is tender in the epigastric area. It is distended. No masses or organomegaly. Normal active bowel sounds. No costovertebral angle tenderness with percussion. Neurological: Alert and oriented x3. No focal neurologic deficits Skin: Warm and dry. Scattered red macular rashes on the trunk and extremities Musculoskeletal: Extremities are nontender. No tenderness in palpation of the cervical, thoracic and lumbar spine. DIFFERENTIAL DIAGNOSIS: After history and physical exam, differential diagnosis was considered for shortness of breath including but not limited to pulmonary infectious process, pulmonary embolus and arrhythmia or heart failure. It also be concerning for an adverse reaction to the hydrocodone. Epigastric discomfort and bloating of uncertain etiology but will also get a CT scan repeated of the abdomen and pelvis and check metabolic panel. Medical Decision Making Data Points Result Diagram: 08/25/18 1630 08/25/18 1630 Laboratory Hematology Test 08/25/18 16:30 08/25/18 19:20 Red Blood Count 5.02 M/uL (4.00-5.60) Mean Corpuscular Volume 86.5 fL (80.0-96.0) Mean Corpuscular Hemoglobin 30.0 pg (26.0-33.0) Mean Corpuscular Hemoglobin Concent 34.7 g/dL (32.0-36.0) Red Cell Distribution Width 13.0 % (11.5-14.5) Mean Platelet Volume 7.6 fL (7.2-11.1) Neutrophils (%) (Auto) 73.7 % (39.4-72.5) Lymphocytes (%) (Auto) 12.7 % (17.6-49.6) Monocytes (%) (Auto) 12.2 % (4.1-12.4) Eosinophils (%) (Auto) 0.6 % (0.4-6.7) Basophils (%) (Auto) 0.8 % (0.3-1.4) Nucleated RBC Relative Count (auto) 0.1 /100WBC Neutrophils # (Auto) 6.9 K/uL (2.0-7.4) Lymphocytes # (Auto) 1.2 K/uL (1.3-3.6) Monocytes # (Auto) 1.1 K/uL (0.3-1.0) Eosinophils # (Auto) 0.1 K/uL (0.0-0.5) Basophils # (Auto) 0.1 K/uL (0.0-0.1) Nucleated RBC Absolute Count (auto) 0.01 K/uL Peripheral Blood Smear Yes Y/N Sodium Level 136 mmol/L (137-145) Potassium Level 3.6 mmol/L (3.5-5.0) Chloride Level 108 mmol/L (98-107) Carbon Dioxide Level 22 mmol/L (22-30) Blood Urea Nitrogen 18 mg/dl (9-21) Creatinine 0.80 mg/dl (0.66-1.25) Glomerular Filtration Rate Calc > 60.0 Random Glucose 89 mg/dl (75-110) Calcium Level 9.2 mg/dl (8.4-10.2) Total Bilirubin 0.8 mg/dl (0.2-1.3) Aspartate Amino Transf (AST/SGOT) 33 U/L (0-35) Alanine Aminotransferase (ALT/SGPT) 77 U/L (0-56) Alkaline Phosphatase 86 U/L (0-126) Troponin I 0.028 ng/ml Total Protein 6.8 g/dl (6.3-8.2) Albumin 3.8 g/dl (3.5-5.0) Urine Color Yellow Urine Clarity Clear Urine pH 6.0 pH (4.8-9.5) Urine Specific [place] 1.025 Urine Protein Negative mg/dL (NEGATIVE) Urine Glucose (UA) Negative mg/dL (NEGATIVE) Urine Ketones 20 mg/dL (NEGATIVE) Urine Blood Negative (NEGATIVE) Urine Nitrite Negative (NEGATIVE) Urine Bilirubin Small (NEGATIVE) Urine Urobilinogen 4.0 mg/dL (0.2-1.9) Urine Leukocyte Esterase Small (NEGATIVE) Urine RBC 2 /HPF (0-2/HPF) Urine WBC 10 /HPF (0-5/HPF) Urine Squamous Epithelial Cells None /LPF (</=FEW) Urine Bacteria Negative /HPF (NONE-FEW) Urine Mucus Few /HPF (NONE-FEW) Chemistry Test 08/25/18 16:30 08/25/18 19:20 White Blood Count 9.3 k/uL (4.5-11.0) Red Blood Count 5.02 M/uL (4.00-5.60) Hemoglobin 15.1 g/dL (14.0-18.0) Hematocrit 43.4 % (42.0-52.0) Mean Corpuscular Volume 86.5 fL (80.0-96.0) Mean Corpuscular Hemoglobin 30.0 pg (26.0-33.0) Mean Corpuscular Hemoglobin Concent 34.7 g/dL (32.0-36.0) Red Cell Distribution Width 13.0 % (11.5-14.5) Platelet Count 292 K/uL (150-450) Mean Platelet Volume 7.6 fL (7.2-11.1) Neutrophils (%) (Auto) 73.7 % (39.4-72.5) Lymphocytes (%) (Auto) 12.7 % (17.6-49.6) Monocytes (%) (Auto) 12.2 % (4.1-12.4) Eosinophils (%) (Auto) 0.6 % (0.4-6.7) Basophils (%) (Auto) 0.8 % (0.3-1.4) Nucleated RBC Relative Count (auto) 0.1 /100WBC Neutrophils # (Auto) 6.9 K/uL (2.0-7.4) Lymphocytes # (Auto) 1.2 K/uL (1.3-3.6) Monocytes # (Auto) 1.1 K/uL (0.3-1.0) Eosinophils # (Auto) 0.1 K/uL (0.0-0.5) Basophils # (Auto) 0.1 K/uL (0.0-0.1) Nucleated RBC Absolute Count (auto) 0.01 K/uL Peripheral Blood Smear Yes Y/N Glomerular Filtration Rate Calc > 60.0 Calcium Level 9.2 mg/dl (8.4-10.2) Total Bilirubin 0.8 mg/dl (0.2-1.3) Aspartate Amino Transf (AST/SGOT) 33 U/L (0-35) Alanine Aminotransferase (ALT/SGPT) 77 U/L (0-56) Alkaline Phosphatase 86 U/L (0-126) Troponin I 0.028 ng/ml Total Protein 6.8 g/dl (6.3-8.2) Albumin 3.8 g/dl (3.5-5.0) Urine Color Yellow Urine Clarity Clear Urine pH 6.0 pH (4.8-9.5) Urine Specific [place] 1.025 Urine Protein Negative mg/dL (NEGATIVE) Urine Glucose (UA) Negative mg/dL (NEGATIVE) Urine Ketones 20 mg/dL (NEGATIVE) Urine Blood Negative (NEGATIVE) Urine Nitrite Negative (NEGATIVE) Urine Bilirubin Small (NEGATIVE) Urine Urobilinogen 4.0 mg/dL (0.2-1.9) Urine Leukocyte Esterase Small (NEGATIVE) Urine RBC 2 /HPF (0-2/HPF) Urine WBC 10 /HPF (0-5/HPF) Urine Squamous Epithelial Cells None /LPF (</=FEW) Urine Bacteria Negative /HPF (NONE-FEW) Urine Mucus Few /HPF (NONE-FEW) Urinalysis Test 08/25/18 19:20 Urine Color Yellow Urine Clarity Clear Urine pH 6.0 pH (4.8-9.5) Urine Specific [place] 1.025 Urine Protein Negative mg/dL (NEGATIVE) Urine Glucose (UA) Negative mg/dL (NEGATIVE) Urine Ketones 20 mg/dL (NEGATIVE) Urine Blood Negative (NEGATIVE) Urine Nitrite Negative (NEGATIVE) Urine Bilirubin Small (NEGATIVE) Urine Urobilinogen 4.0 mg/dL (0.2-1.9) Urine Leukocyte Esterase Small (NEGATIVE) Urine RBC 2 /HPF (0-2/HPF) Urine WBC 10 /HPF (0-5/HPF) Urine Squamous Epithelial Cells None /LPF (</=FEW) Urine Bacteria Negative /HPF (NONE-FEW) Urine Mucus Few /HPF (NONE-FEW) EKG/Imaging EKG Interpretation 12 lead EKG: Rhythm: Sinus bradycardia, rate 57 [place]: normal QRS: normal ST segments: normal Imaging CT ANGIOGRAM OF THE CHEST WITH INTRAVENOUS CONTRAST, PE PROTOCOL DATE OF EXAM: 08/25/2018 19:53 COMPARISON: Chest radiograph July 30, 2016. INDICATION: Shortness of breath. TECHNIQUE: Contrast enhanced chest CT performed during the injection of 75 ml of Isovue-370. Three-dimensional (MIP) reconstructions were performed. FINDINGS: Negative for pulmonary arterial embolism. Very small right pleural effusion with adjacent atelectasis. No consolidation or pneumothorax. Thyroid: Not diagnostically imaged. Thoracic inlet: No thoracic inlet adenopathy. Heart and great vessels: Heart size is normal. Coronary atherosclerosis is prominent. Mediastinum and joann: No mediastinal or hilar adenopathy. Lungs and pleura: As above. Breast and axilla: Mild symmetric gynecomastia. Bones and soft tissues: No acute osseous abnormality. Nonspecific 1.8 cm lytic focus in the left fifth rib posteriorly demonstrates no definite cortical breakthrough. Upper abdomen: Unremarkable IMPRESSION: 1. Negative for pulmonary arterial embolus. 2. Small right pleural effusion. 3. Nonspecific lytic lesion posteriorly in the left fifth rib demonstrates no particularly aggressive features. One of the following dose optimization techniques was utilized in the performance of this exam: Automated exposure control; adjustment of the mA and/or kV according to the patient's size; or use of an iterative recons truction technique. Specific details can be referenced in the facility's radiology CT exam operational policy. Report Dictated By: Pat Gomez MD at 08/25/2018 8:50 PM COMPUTED TOMOGRAPHY OF THE Abdomen and Pelvis with CONTRAST INDICATION: Abdominal pain and distention. TECHNIQUE: Contiguous axial 3.[address] images were obtained through the abdomen and pelvis after 75 mL Isovue-370. Coronal and sagittal reformatted images were submitted. COMPARISON: CT August 21, 2018. FINDINGS: Liver and hepatic vasculature: No focal lesion. Gallbladder and bile ducts: Normal gallbladder. Spleen: Normal Pancreas: Normal Adrenals: 2.9 cm nodule at the left adrenal is indeterminate. The right adrenal is normal. Kidneys, ureters and bladder: No stone or obstruction. Symmetric enhancement. Subcentimeter lesion in the superior pole of the left kidney is too small to c haracterize. Incompletely filled bladder. Retroperitoneum and aorta: Normal caliber aorta. Mild atherosclerosis. GI tract, mesentery and peritoneum: Stranding adjacent to the second and third p ortions of the duodenum is extensive, and the duodenal wall is markedly thickened. There is no discrete fluid collection or free air. A diverticulum is not identified. Numerous colonic diverticula are without evidence of diverticulitis. The appendix is normal. Prostate: There are calcifications but no enlargement. Bones and soft tissues: No acute osseous abnormality. IMPRESSION: 1. Extensive inflammation adjacent to the second and third portions of the duodenum as well as marked wall thickening suggests duodenitis. There is no evidence of perforation. 2. Indeterminate 2.9 cm left adrenal nodule. Recommend adrenal mass protocol CT to determine washout characteristics. 3. Very small right pleural effusion. 4. Colonic diverticula without findings of diverticulitis. 4. Normal appendix. One of the following dose optimization techniques was utilized in the performance of this exam: Automated exposure control; adjustment of the mA and/or kV according to the patient's size; or use of an iterative reconstruction technique. Specific details can be referenced in the facility's radiology CT exam operational policy. Report Dictated By: Pat Gomez MD at 08/25/2018 9:07 PM ED Course/Re-evaluation ED Course Reviewed the echocardiogram report which shows normal ejection fraction, no major abnormalities other than pulmonary hypertension. CT scans were obtained and the patient has a duodenitis. This cancerous pain and bloating in the epigastric area. Initial evaluation and management with morphine was partially effective in relieving the pain. Once the CT scan was back we gave her Protonix as well as a GI cocktail and some Carafate and pain was significantly better. No sign of pulmonary embolism or other pulmonary problem on chest CT. I reviewed all this with the patient. He will follow up as planned with all of his other t esting that needs to be done and this includes follow-up with cardiology or pulmonology as needed. He will finish his Levaquin. I gave him Ultram to use for pain. Also continue him on omeprazole and Carafate. Decision to Disposition Date: Aug 25, 2018 Decision to Disposition Time: 23:31 Depart Departure Latest Vital Signs Vital Signs Date Time Temp Pulse Resp B/P (MAP) Pulse Ox O2 Delivery O2 Flow Rate FiO2 08/25/18 23:30 61 89 08/25/18 22:49 152/75 (100) 08/25/18 18:13 99.5 20 Room Air Impression: Primary Impression: Duodenitis without bleeding Additional Impressions: Orchitis Pulmonary hypertension Condition: Improved Disposition: HOME OR SELF-CARE New Scripts Ondansetron 4 Mg Odt (ONDANSETRON 4 MG ODT) 4 Mg Tab.rapdis 4 MG PO ONCE PRN for NAUSEA/VOMITING, #20 TAB 0 Refills Prov: HARINDER MEHTA MD 08/25/18 Tramadol Hcl (TRAMADOL HCL) 50 Mg Tablet 50 MG PO Q6H PRN for PAIN, #12 TAB 0 Refills Prov: HARINDER MEHTA MD 08/25/18 Sucralfate (CARAFATE) 1 Gm Tablet 1 GM PO QID, #120 TAB 0 Refills Prov: HARINDER MEHTA MD 08/25/18 Omeprazole (OMEPRAZOLE) 40 Mg Capsule.dr 40 MG PO BID, #60 CAP 0 Refills Prov: HARINDER MEHTA MD 08/25/18 Patient Instructions: Duodenitis (ED) Additional Instructions: You have inflammation in your small intestine, in the area right after the stomach. You will need to take Omeprazole 40mg twice a day. Start Carafate 1gram tablets four times a day. You can use over the counter Maalox as needed for stomach pain. Ultram 50mg tablets every 6 hours as needed for pain. Zofran 4mg one every 6 hours as needed for nausea. Keep taking your Levaquin as directed. Follow-up with your primary care as directed previously. They will help with arranging further follow-up with specialists as needed. Consider seeing a GI specialist or a general surgeon for re-evaluation of the duodenitis; this sometimes needs an upper scope for further evaluation. Problem Qualifiers HARINDER MEHTA MD Aug 25, 2018 18:24
[2018-08-25 18:47] LABS: PLATELET COUNT, AUTOMATED 292 K/uL (150-450)
[2018-08-25] MEDS ORDERED: MORPHINE 4 MG/ML SDV IVP ONE ×2 (20:10→22:50)
[2018-08-25] MEDS ORDERED: ONDANSETRON 4 MG/2 ML VIAL IVP ONE (20:10)
[2018-08-25] MEDS ORDERED: NS(*) 0.9% 50 ML BAG 50 ML ONE (20:18)
--- NOTE | 2018-08-25 20:37 | EKG ---
FACILITY: [facility] - [place] PATIENT NAME: DARLINE JUSTIN : [id number] MR: [id number] V: [id number] EXAM DATE: ORDERING PHYSICIAN: HARINDER MEHTA TECHNOLOGIST: ZACK Test Reason : SOB Blood Pressure : / mmHG Vent. Rate : 057 BPM Atrial Rate : 083 BPM P-R Int : 158 ms QRS Dur : 092 ms QT Int : 458 ms P-R-T Axes : 068 025 038 degrees QTc Int : 445 ms Normal sinus rhythm Normal ECG When compared with ECG of 24-AUG-2018 12:09, premature ventricular complexes are no longer present Confirmed by SAVANNA ALICEA ([id number]) on 08/26/2018 6:07:46 AM Referred By: Confirmed By:SAVANNA ALICEA
--- NOTE | 2018-08-25 21:10 | RADIOLOGY IMAGING REPORT ---
FACILITY: [facility] - [place] PATIENT NAME: Tj Collado : 1960 MR: [id number] V: [id number] EXAM DATE: ORDERING PHYSICIAN: HARINDER MEHTA TECHNOLOGIST: [place] [facility] [place]j Coll[place] : 1960 Visit/Account:[id number] Date of Sevice: 08/25/2018 CT ANGIOGRAM OF THE CHEST WITH INTRAVENOUS CONTRAST, PE PROTOCOL DATE OF EXAM: 08/25/2018 19:53 COMPARISON: Chest radiograph July 30, 2016. INDICATION: Shortness of breath. TECHNIQUE: Contrast enhanced chest CT performed during the injection of 75 ml of Isovue-370. Three-d imensional (MIP) reconstructions were performed. FINDINGS: Negative for pulmonary arterial embolism. Very small right pleural effusion with adjacent atelectasi s. No consolidation or pneumothorax. Thyroid: Not diagnostically imaged. Thoracic inlet: No thoracic inlet adenopathy. Heart and great vessels: Heart size is normal. Coronary atherosclerosis is prominent. Mediastinum and joann: No mediastinal or hilar adenopathy. Lungs and pleura: As above. Breast and axilla: Mild symmetric gynecomastia. Bones and soft tissues: No acute osseous abnormality. Nonspecific 1.8 cm lytic focus in the left fi fth rib posteriorly demonstrates no definite cortical breakthrough. Upper abdomen: Unremarkable IMPRESSION: 1. Negative for pulmonary arterial embolus. 2. Small right pleural effusion. 3. Nonspecific lytic lesion posteriorly in the left fifth rib demonstrates no particularly aggressiv e features. One of the following dose optimization techniques was utilized in the performance of this exam: Autom ated exposure control; adjustment of the mA and/or kV according to the patient's size; or use of an i terative reconstruction technique. Specific details can be referenced in the facility's radiology C T exam operational policy. Report Dictated By: Pta Gomez MD at 08/25/2018 8:50 PM Report E-Signed By: Pat Gomez MD at 08/25/2018 9:07 PM WSN:[email or web address]
--- NOTE | 2018-08-25 21:26 | RADIOLOGY IMAGING REPORT ---
FACILITY: [facility] - [place] PATIENT NAME: Tj Collado : 1960 MR: [id number] V: [id number] EXAM DATE: ORDERING PHYSICIAN: HARINDER MEHTA TECHNOLOGIST: Location: [facility] Patient: Tj Collado : 1960 Visit/Account:[id number] Date of Sevice: 08/25/2018 COMPUTED TOMOGRAPHY OF THE Abdomen and Pelvis with CONTRAST INDICATION: Abdominal pain and distention. TECHNIQUE: Contiguous axial 3.[address] images were obtained through the abdomen and pelvis after 75 m L Isovue-370. Coronal and sagittal reformatted images were submitted. COMPARISON: CT August 21, 2018. FINDINGS: Liver and hepatic vasculature: No focal lesion. Gallbladder and bile ducts: Normal gallbladder. Spleen: Normal Pancreas: Normal Adrenals: 2.9 cm nodule at the left adrenal is indeterminate. The right adrenal is normal. Kidneys, ureters and bladder: No stone or obstruction. Symmetric enhancement. Subcentimeter lesion in the superior pole of the left kidney is too small to characterize. Incompletely filled bladder. Retroperitoneum and aorta: Normal caliber aorta. Mild atherosclerosis. GI tract, mesentery and peritoneum: Stranding adjacent to the second and third portions of the duoden um is extensive, and the duodenal wall is markedly thickened. There is no discrete fluid collection or free air. A diverticulum is not identified. Numerous colonic diverticula are without evidence of diverticulitis. The appendix is normal. Prostate: There are calcifications but no enlargement. Bones and soft tissues: No acute osseous abnormality. IMPRESSION: 1. Extensive inflammation adjacent to the second and third portions of the duodenum as well as marke d wall thickening suggests duodenitis. There is no evidence of perforation. 2. Indeterminate 2.9 cm left adrenal nodule. Recommend adrenal mass protocol CT to determine washou t characteristics. 3. Very small right pleural effusion. 4. Colonic diverticula without findings of diverticulitis. 4. Normal appendix. One of the following dose optimization techniques was utilized in the performance of this exam: Autom ated exposure control; adjustment of the mA and/or kV according to the patient's size; or use of an i terative reconstruction technique. Specific details can be referenced in the facility's radiology C T exam operational policy. Report Dictated By: Pat Gomez MD at 08/25/2018 9:07 PM Report E-Signed By: Pat Gomez MD at 08/25/2018 9:23 PM WSN:[email or web address]
[2018-08-25 22:49] VITALS: BP 152/75
[2018-08-25] MEDS ORDERED: ATRO/SCOPOL/HYOSCY/PB 5 ML ELX PO ONE (22:50)
[2018-08-25] MEDS ORDERED: MAG HYD/AL HYD/SIMETH 30ML UDC PO ONE (22:50)
[2018-08-25] MEDS ORDERED: LIDOCAINE 2% VISC SLN 15ML UDC PO ONE (22:50)
[2018-08-25] MEDS ORDERED: SUCRALFATE 1 GM TAB PO ONE (22:50)
[2018-08-25] MEDS ORDERED: PANTOPRAZOLE SOD 40 MG IV VIAL IVP ONE (22:50)
[2018-08-25] MEDS ORDERED: ONDANSETRON 4 MG ODT TH SL ONE (23:30)
[2018-08-25] MEDS ORDERED: traMADol 50 MG TAB TH 2 TAB/BOTTLE PO ONE (23:30)
[2018-08-25] MEDS ORDERED: TRAM-420 PO (23:33)
[2018-08-25] MEDS ORDERED: SUCR1TAB85 PO (23:33)
[2018-08-25] MEDS ORDERED: ONDA4TAB9 PO (23:33)
[2018-08-25] MEDS ORDERED: OMEP40CA48 PO (23:33)
== END 2018-08-26 00:15 | disposition home or self-care (01) ==
LOC: ER 18:21
DX: K29.80 Duodenitis without bleeding (principal); N45.2 Orchitis; I27.20 Pulmonary hypertension, unspecified
CPT/HCPCS: 71275; 74177; 81001; 84484; 85025; 93005; 96374; 96375; 96376; 99284; C9113; C9399; J2270; J2405; J7050; Q9967; S0119; 82040; 82247; 82310; 82374; 82435; 82565; 82947; 84075; 84132; 84155; 84295; 84450; 84460; 84520